=== PATIENT | male | born 1980 | race Caucasian/White ===

== ENCOUNTER 2016-08-14 17:39 | Emergency (ER) | payer BC ==
--- NOTE | 2016-09-04 13:49 | ER ---
ADMIT: 08/14/2016 RM/LOC: ER [facility] MR#: [id number] [address] [id number] DAI ABREU [address] [place] [id number] Emergency Room Report SEX: M AGE: 35 : 1980 DATE: 08/14/2016 ADDENDUM: Overall findings CLINICAL IMPRESSION: 1. Hypertension. 2. Anxiety. DISPOSITION: Sent him home. Told him to follow up with his primary care physician to recheck. ELEUTERIO Rodgers / Tim Arenas MD / chanal JOB #: [id number] CC: Tim Arenas MD, Attending Physician George Kaufman MD, Family Physician
== END 2016-08-14 18:18 | disposition home or self-care (01) ==
LOC: ER 17:39
DX: I10 Essential (primary) hypertension (principal); F41.9 Anxiety disorder, unspecified; F32.9 Major depressive disorder, single episode, unspecified; F17.210 Nicotine dependence, cigarettes, uncomplicated